=== PATIENT | female | born 1995 | race Caucasian/White ===

== ENCOUNTER 2017-01-27 09:28 | Emergency (ER) | payer SELFPAY ==
[2017-01-27 09:40] VITALS: TEMP 98.2
[2017-01-27] MEDS ORDERED: ONDANSETRON 4 MG/2 ML VIAL IVP ONE ×2 (09:42→11:06)
[2017-01-27] MEDS ORDERED: NS 1,000 ML IV ONE ×2 (09:42→10:48)
[2017-01-27 10:05] LABS: % IMMATURE GRANULYOCYTES 0.7 % (0.0-1.1); ADD DIFF? NO; ADD MORPH? NO; ADD SCAN? NO; ATYPICAL LYMPHOCYTE FLAG 0 (0-99); FRAGMENT RBC FLAG 0 (0-99); HEMATOCRIT 46.3 % (38.0-47.0); HEMOGLOBIN 15.8 g/dL (12.6-16.3); LEFT SHIFT FLG 0 (0-99); LIPEMIA HEMOLYSIS FLAG 90 (0-99); MEAN CELL HEMOGLOBIN 32.3 pg (27.9-34.1); MEAN CELL HEMOGLOBIN CONCENTR. 34.1 g/dL (32.4-36.7); MEAN CELL VOLUME 94.7 fL (81.5-99.8); MEAN PLATELET VOLUME 11.7 fL (8.7-11.7); PLATELET CLUMPS FLAG 0 (0-99); PLATELET COUNT 278 10^3/uL (150-400); RED BLOOD CELL COUNT 4.89 10^6/uL (4.18-5.33); RED CELL DISTRIBUTION WIDTH 13.2 % (11.5-15.2)
[2017-01-27] MEDS ORDERED: FAMOTIDINE 20 MG/2 ML SDV IVP ONE (10:19)
[2017-01-27] MEDS ORDERED: MAG HYDROX/AL HYDROX/SIMETH 30 ML UDCUP PO ONE (10:20)
[2017-01-27] MEDS ORDERED: LIDOCAINE 2% VISCOUS 15 ML UDCUP PO ONE (10:20)
[2017-01-27] MEDS ORDERED: HYOSCYAMINE SULFATE 0.125 MG TAB PO ONE (10:20)
[2017-01-27 10:26] LABS: CALCIUM 9.8 mg/dL (8.5-10.4); CARBON DIOXIDE 23 mEq/l (22-31); CHLORIDE 108 mEq/L (97-110); CREATININE 0.6 mg/dL (0.6-1.0); GLOMERULAR FILTRATION RATE > 60; GLUCOSE 95 mg/dL (70-100); SODIUM 144 mEq/L (134-144)
[2017-01-27 10:40] LABS: ANION GAP 13 mEq/L (8-16); POTASSIUM 4.2 mEq/L (3.5-5.2)
--- NOTE | 2017-01-27 10:46 | EDPHY ---
H & P Stated Complaint: nausea and vomiting for several days, epigastric pain. Time Seen by Provider: 01/27/17 09:50 HPI/ROS: HPI: 21-year-old female presents to emergency department with chief concern nausea and vomiting. Symptoms onset suddenly last night associated with 8/10 mid epigastric and right sided upper abdominal discomfort. No aggravating or alleviating factors. Reports an episode of this last week that lasted for 24 hours. She continued to have nausea and fatigue thereafter. Denies fever, chills, myalgias, URI symptoms, shortness of breath, chest pain, bloody emesis, diarrhea, rash. Reports 1 episode of urinary hesitancy in the past week but that resolved. LMP 2 weeks ago. Past medical history notable for appendectomy and asthma. Past family history notable for cholecystitis in her mother and grandmother resulting cholecystectomy, Crohn's disease, irritable bowel. She has had "tummy issues ever since she can remember" that includes gas, bloating, frequent bowel movements. Uses alcohol once monthly. Uses marijuana occasionally. 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 No change in bowel habit. Last BM yesterday. No recent NSAID use. ROS:10 point review of systems is negative other than as stated in HPI Source: Patient Exam Limitations: No limitations - Personal History LMP (Females 10-55): Irregular Current Tetanus/Diphtheria Vaccine: Unsure Current Tetanus Diphtheria and Acellular Pertussis (TDAP): Unsure - Medical/Surgical History Hx Asthma: Yes Hx Chronic Respiratory Disease: No Hx Diabetes: No Hx Cardiac Disease: No Hx Renal Disease: No Hx Cirrhosis: No Hx Alcoholism: No Hx HIV/AIDS: No Hx Splenectomy or Spleen Trauma: No Other PMH: Appy, asthma. 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 No acute distress. Head: Normalocephalic. Atraumatic. EENT: PERRLA. EOMI. No pallor or injection. Anicteric. No nystagmus. No injection. TMs intact bilaterally with normal landmarks. No rhinnorhea, nasal passages clear. Oropharynx without redness, exudates, or lesions. Tonsils 2+ bilaterally, no exudates. Neck: Supple, nontender. No lymphadenopathy. Full range of motion. No meningismus. Respiratory: Breathing unlabored. Breath sounds equal bilaterally and clear to auscultation. No adventitious sounds. CV: Chest nontender, atraumatic. Heart rate regular. No murmur, distal pulses 2+ bilaterally. Brisk cap refill all extremities. GI: Abdomen soft, positive mid upper epigastric and right upper quadrant tenderness. Bowel sounds normoactive and positive x4 quadrants. : No suprapubic tenderness. No CVA or flank tenderness. Neuro: Alert. Oriented x 3. Speech clear. Nonfocal cranial nerves throughout. Sensation intact all extremities. Skin: Skin warm, dry, intact. No rashes, abrasions, or lacerations. Skin turgor normal. Extremities: Full range of motion in all 4 extremities. Strength 5+ all extremities. Constitutional: Initial Vital Signs Temperature (C) 36.8 C 01/27/17 09:36 Heart Rate 85 01/27/17 09:36 Blood Pressure 111/78 01/27/17 09:36 O2 Sat (%) 95 01/27/17 09:36 O2 Delivery Mode Room Air Allergies/Adverse Reactions: oxycodone HCl [From Percocet] Allergy (Intermediate, Verified 01/27/17 09:40) Vomiting acetaminophen [From Percocet] Allergy (Verified 01/27/17 09:40) ANTIHISTATMINE Allergy (Severe, Uncoded 01/27/17 09:40) Other-Enter Comments Home Medications: Medication Instructions Recorded Ondansetron Odt [Zofran Odt 4 mg 4 mg PO Q4 #6 tab 01/27/17 (*)] Medical Decision Making - Diagnostics Imaging Results: Imaging Impressions Abdomen Ultrasound 01/27/17 10:19 IMPRESSION: Normal study. Findings were discussed with Cleopatra Vega NP at 11:11 am, on 01/27/2017. ED Course/Re-evaluation: 1000:21-year-old female presents to ED with nausea and vomiting. This is the 2nd episode within a week. It is associated with mid upper epigastric and right upper quadrant tenderness on exam. At time of exam and, nausea has resolved, discomfort 2/10. Patient given 1 L normal saline, 4 mg IV Zofran, 20 IV Pepcid, GI cocktail. Right upper quadrant ultrasound pending. Awaiting urinalysis. 11:00 white count [id number] with left shift. Metabolic panel and LFTs unremarkable. HCG negative. Right upper quadrant ultrasound negative. Urinalysis negative for evidence of infection. Counseled patient regarding need for prompt follow-up tomorrow with primary care. She has been given the name of the on-call primary care provider Dr. Giovanny Coleman. She understands plan and agrees to do so. Counseled to return to ED for worsening symptoms including fever, worsening pain. Differential Diagnosis: Differential diagnosis includes but is not limited to dyspepsia including acid reflux/GERD, gastritis, cholecystitis/cholelithiasis, irritable bowel, UTI, - Data Points Laboratory Results: Laboratory Results 01/27/17 09:50 01/27/17 09:50 01/27/17 01/27/17 01/27/17 11:34 09:50 09:50 WBC RBC Hgb Hct MCV MCH MCHC RDW Plt Count MPV Neut % (Auto) Lymph % (Auto) Mobile % (Auto) Eos % (Auto) Baso % (Auto) Nucleat RBC Rel Count Absolute Neuts (auto) Absolute Lymphs (auto) Absolute Monos (auto) Absolute Eos (auto) Absolute Basos (auto) Absolute Nucleated RBC Immature Gran % Immature Gran # Sodium Potassium Chloride Carbon Dioxide Anion Gap BUN Creatinine Estimated GFR Glucose Calcium Total Bilirubin 0.9 mg/dL mg/dL (0.1-1.4) Conjugated Bilirubin 0.5 mg/dL mg/dL (0.0-0.5) Unconjugated Bilirubin 0.4 mg/dL mg/dL (0.0-1.1) AST 28 IU/L IU/L (14-46) ALT 26 IU/L IU/L (9-52) Alkaline Phosphatase 51 IU/L IU/L (38-126) Total Protein 7.4 g/dL g/dL (6.3-8.2) Albumin 4.9 g/dL g/dL (3.5-5.0) Beta HCG, Qual NEGATIVE Urine Color YELLOW Urine Appearance HAZY Urine pH 9.0 H (5.0-7.5) Ur Specific Parker 1.020 (1.002-1.030) Urine Protein 2+ H (NEGATIVE) Urine Ketones 1+ H (NEGATIVE) Urine Blood NEGATIVE (NEGATIVE) Urine Nitrate NEGATIVE (NEGATIVE) Urine Bilirubin NEGATIVE (NEGATIVE) Urine Urobilinogen NEGATIVE EU EU (0.2-1.0) Ur Leukocyte Esterase NEGATIVE (NEGATIVE) Urine RBC 10-15 /hpf H /hpf (0-3) Urine WBC 1-3 /hpf /hpf (0-3) Ur Epithelial Cells 1+ /lpf /lpf (NONE-1+) Urine Bacteria TRACE /hpf H /hpf (NONE SEEN) Urine Mucus TRACE /lpf /lpf (NONE-1+) Urine Sperm PRESENT /hpf H /hpf (NONE SEEN) Urine Glucose NEGATIVE (NEGATIVE) 01/27/17 01/27/17 09:50 09:50 WBC 15.18 10^3/uL H 10^3/uL (3.80-9.50) RBC 4.89 10^6/uL 10^6/uL (4.18-5.33) Hgb 15.8 g/dL g/dL (12.6-16.3) Hct 46.3 % % (38.0-47.0) MCV 94.7 fL fL (81.5-99.8) MCH 32.3 pg pg (27.9-34.1) MCHC 34.1 g/dL g/dL (32.4-36.7) RDW 13.2 % % (11.5-15.2) Plt Count 278 10^3/uL 10^3/uL (150-400) MPV 11.7 fL fL (8.7-11.7) Neut % (Auto) 75.8 % H % (39.3-74.2) Lymph % (Auto) 17.5 % % (15.0-45.0) Mobile % (Auto) 4.9 % % (4.5-13.0) Eos % (Auto) 0.6 % % (0.6-7.6) Baso % (Auto) 0.5 % % (0.3-1.7) Nucleat RBC Rel Count 0.0 % % (0.0-0.2) Absolute Neuts (auto) 11.51 10^3/uL H 10^3/uL (1.70-6.50) Absolute Lymphs (auto) 2.66 10^3/uL 10^3/uL (1.00-3.00) Absolute Monos (auto) 0.74 10^3/uL 10^3/uL (0.30-0.80) Absolute Eos (auto) 0.09 10^3/uL 10^3/uL (0.03-0.40) Absolute Basos (auto) 0.08 10^3/uL 10^3/uL (0.02-0.10) Absolute Nucleated RBC 0.00 10^3/uL 10^3/uL (0-0.01) Immature Gran % 0.7 % % (0.0-1.1) Immature Gran # 0.10 10^3/uL 10^3/uL (0.00-0.10) Sodium 144 mEq/L mEq/L (134-144) Potassium 4.2 mEq/L mEq/L (3.5-5.2) Chloride 108 mEq/L mEq/L (97-110) Carbon Dioxide 23 mEq/l mEq/l (22-31) Anion Gap 13 mEq/L mEq/L (8-16) BUN 11 mg/dL mg/dL (7-23) Creatinine 0.6 mg/dL mg/dL (0.6-1.0) Estimated GFR > 60 Glucose 95 mg/dL mg/dL (70-100) Calcium 9.8 mg/dL mg/dL (8.5-10.4) Total Bilirubin Conjugated Bilirubin Unconjugated Bilirubin AST ALT Alkaline Phosphatase Total Protein Albumin Beta HCG, Qual Urine Color Urine Appearance Urine pH Ur Specific Parker Urine Protein Urine Ketones Urine Blood Urine Nitrate Urine Bilirubin Urine Urobilinogen Ur Leukocyte Esterase Urine RBC Urine WBC Ur Epithelial Cells Urine Bacteria Urine Mucus Urine Sperm Urine Glucose Medications Given: Discontinued Medications Al Hydroxide/Mg Hydroxide (Maalox Susp) 30 ml PO ONCE ONE Stop: 01/27/17 10:21 Last Admin: 01/27/17 10:38 Dose: 30 ml Famotidine (Pepcid) 20 mg IVP EDNOW ONE Stop: 01/27/17 10:20 Last Admin: 01/27/17 10:37 Dose: 20 mg Hyoscyamine Sulfate (Levsin, Hyomax-Sl) 0.25 mg PO ONCE ONE Stop: 01/27/17 10:21 Last Admin: 01/27/17 10:38 Dose: 0.25 mg Sodium Chloride (Ns) 1,000 mls @ 0 mls/hr IV ONCE ONE PRN Reason: Wide Open Stop: 01/27/17 09:43 Last Admin: 01/27/17 09:58 Dose: 1,000 mls Sodium Chloride (Ns) 1,000 mls @ 0 mls/hr IV ONCE ONE PRN Reason: Wide Open Stop: 01/27/17 10:49 Last Admin: 01/27/17 11:08 Dose: 1,000 mls Lidocaine (Lidocaine 2% Viscous) 15 ml PO ONCE ONE Stop: 01/27/17 10:21 Last Admin: 01/27/17 10:38 Dose: 15 ml Ondansetron HCl (Zofran) 4 mg IVP EDNOW ONE Stop: 01/27/17 09:43 Last Admin: 01/27/17 09:58 Dose: 4 mg Ondansetron HCl (Zofran) 4 mg IVP EDNOW ONE Stop: 01/27/17 11:07 Last Admin: 01/27/17 11:17 Dose: 4 mg Departure - Departure Disposition: Home, Routine, Self-Care Clinical Impression: Acute epigastric pain Nausea & vomiting Qualifiers: Vomiting Intractability: non-intractable Condition: Good Instructions: Acute Nausea and Vomiting (ED), Epigastric Pain (ED) Additional Instructions: Plan: Please call the office of Dr. Giovanny Coleman (on-call PCP) as indicated in your paperwork, and ask for emergency room follow-up appointment tomorrow May use Zofran every 6 hours as needed for vomiting Imperative that you drink plenty of fluids If your pain become severe and unremitting, or if you notice any bloody vomit return promptly for recheck Referrals: NONE *PRIMARY CARE P,. [Primary Care Provider] - As per Instructions Giovanny Coleman MD [Medical Doctor] - As per Instructions Stand Alone Forms: Work Excuse Prescriptions: Ondansetron Odt [Zofran Odt 4 mg (*)] 4 mg PO Q4 #6 tab
[2017-01-27 10:54] LABS: ALBUMIN 4.9 g/dL (3.5-5.0); BILIRUBIN,TOTAL 0.9 mg/dL (0.1-1.4); BILIRUBIN-CONJUGATED 0.5 mg/dL (0.0-0.5); BILIRUBIN-UNCONJUGATED 0.4 mg/dL (0.0-1.1); TOTAL PROTEIN 7.4 g/dL (6.3-8.2)
[2017-01-27 11:46] LABS: COLOR YELLOW; LEUKOCYTE ESTERASE,URINE NEGATIVE (NEGATIVE); NITRITE,URINE NEGATIVE (NEGATIVE)
[2017-01-27 12:01] LABS: BACTERIA TRACE /hpf (NONE SEEN); MUCUS TRACE /lpf (NONE-1+)
[2017-01-27 12:08] VITALS: BP 105/62; PULSE 69; RESP 18; O2SAT 96
== END 2017-01-27 12:12 | disposition home or self-care (01) ==
DX: R11.2 Nausea with vomiting, unspecified (principal); R10.13 Epigastric pain; J45.909 Unspecified asthma, uncomplicated; F17.200 Nicotine dependence, unspecified, uncomplicated
CPT/HCPCS: 96374; J2405